=== PATIENT | male | born 1935 | race Caucasian/White ===

== ENCOUNTER 2017-01-03 03:40 | Observation (INO) | payer OTHER ==
--- NOTE | ~2017-01-03 | CN ---
Consultation Report [facility] [address] [place]. [address] NAME: BOB HINES : 33 STATUS : ADM Aurelia PAT#: [id number] AGE: 81 ADM/REG DATE : 01/03/17 MR#: [id number] REPORT SERV DATE: 01/03/17 DICTATED BY: MICHAEL CORONEL III DATE: 01/03/17 REPORT STATUS : Draft TRANSCRIBED BY: MODKristine DATE: 01/03/17 CONSULTATION DATE OF CONSULTATION: 01/03/2017 HISTORY OF PRESENT ILLNESS: Mr. Bob Hines is an 81-year-old white male, referred for evaluation of chest pain. The patient had been in his usual state of health until approximately 2010. At that time, the patient presented with dyspnea. The patient subsequently underwent cardiac catheterization followed by percutaneous coronary intervention with implantation of a coronary stent. The patient was told that there was a second stenosis that was not amenable to revascularization. The patient did well until approximately four months prior to this admission. At that time, the patient had the onset of dull left precordial chest pains without radiation. The patient's chest pains have lasted up to two hours in duration. The patient's chest pains have been accompanied by dyspnea. The patient denied any associated diaphoresis, nausea, or vomiting. The patient's chest pains occur at rest. Frequently, the patient's chest pains have awoken him from sleep. The patient denied relief of his chest pain with sublingual nitroglycerin. The patient denied trying antacids or a heating pad. The patient was subsequently seen in the [facility]. A 12-lead electrocardiogram demonstrated sinus rhythm with occasional ventricular premature complexes at 77 beats per minute. There was probable left ventricular hypertrophy. There were widespread nonspecific T-wave abnormalities. The patient's troponin I level was less than 0.02. A chest radiograph demonstrated cardiomegaly with increased interstitial markings. There was no change from a prior chest x-ray. The patient was subsequently admitted and referred for evaluation. The patient complained of dyspnea on exertion and occasional palpitations. The patient denied orthopnea, paroxysmal nocturnal dyspnea, trepopnea, pedal edema, and syncope. The patient has no history of rheumatic fever or cardiac murmur. The patient's documented coronary artery disease risk factors include family history, hyperlipoproteinemia, and hypertension. PAST MEDICAL HISTORY: 1. Hiatal hernia with gastroesophageal reflux. 2. Hypertension. 3. Hyperlipoproteinemia. 4. History of left lower extremity deep venous thrombosis. 5. Parkinson disease. 6. Arthritis. 7. History of multiple skin cancers. 8. Clostridium difficile colitis. 9. History of pneumonia followed by chronic hypoxemia. 10.Hypothyroidism. 11.Depression. 12.Chronic anxiety. Consultation Report [place] [address] [facility] [address] NAME: BOB HINES : 33 STATUS : ADM Aurelia PAT#: [id number] AGE: 81 ADM/REG DATE : 01/03/17 MR#: [id number] REPORT SERV DATE: 01/03/17 DICTATED BY: MICHAEL CORONEL III DATE: 01/03/17 REPORT STATUS : Draft TRANSCRIBED BY: JEAN MARIE DATE: 01/03/17 13.Chronic anemia. 14.Chronic obstructive pulmonary disease. OPERATIVE PROCEDURES: 1. Status post placement of a [place] filter. 2. Status post cholecystostomy tube. 3. Status post left total knee replacement. 4. Status post C5-C6 fusion. 5. Status post retinal surgery. ALLERGIES: 1. SULFA MEDICATIONS. 2. IODINE. MEDICATIONS: 1. Amantadine 100 mg p.o. b.i.d. 2. Aspirin 81 mg p.o. daily. 3. Beclomethasone two sprays b.i.d. 4. Carbidopa/levodopa 25/100 mg p.o. t.i.d. 5. Carbidopa/levodopa 12.5/50 mg p.o. b.i.d. 6. Cholecalciferol 10,000 units p.o. every week. 7. Colchicine 0.6 mg p.o. b.i.d. 8. Furosemide 20 mg p.o. daily. 9. Gabapentin 100 mg p.o. t.i.d. 10.Gemfibrozil 600 mg p.o. b.i.d. 11.Isosorbide mononitrate ER 30 mg p.o. daily. 12.Levothyroxine 100 mcg p.o. daily. 13.Loratadine 10 mg p.o. daily. 14.Pantoprazole 40 mg p.o. daily. 15.Potassium chloride 20 mEq p.o. daily. 16.Pravastatin 40 mg p.o. at bedtime. 17.Sertraline 50 mg p.o. at bedtime. 18.Tamsulosin 0.4 mg p.o. daily. 19.Warfarin as directed. 20.Vancomycin 125 mg p.o. q.6 hours until 01/22/2017. FAMILY HISTORY: Positive for myocardial infarction, hypertension, diabetes mellitus, stroke, cancer, kidney disease, and arthritis. Negative for seizures, liver disease, anemia, and mental illness. SOCIAL HISTORY: The patient denied any history of alcohol use. The patient discontinued cigarette smoking approximately 30 years prior to this admission. PHYSICAL EXAMINATION: GENERAL: Physical examination demonstrated an alert, elderly white male, in no acute Consultation Report [address] [address] NAME: BOB HINES : 33 STATUS : ADM Aurelia PAT#: [id number] AGE: 81 ADM/REG DATE : 01/03/17 MR#: [id number] REPORT SERV DATE: 01/03/17 DICTATED BY: MICHAEL CORONEL III DATE: 01/03/17 REPORT STATUS : Draft TRANSCRIBED BY: JEAN MARIE DATE: 01/03/17 distress. VITAL SIGNS: Demonstrated a temperature of 97.8 orally, respiratory rate of 20 breaths per minute, and a blood pressure of 125/58 mmHg with a heart rate of 67 beats per minute. SKIN: Warm and dry. There was distal left lower extremity hyperpigmentation and hair loss. A right upper quadrant cholecystostomy tube was intact. NECK: Supple and nontender. There was decreased range of motion. There was no appreciable lymphadenopathy or thyromegaly. There was no jugular venous distention. There were no appreciable carotid bruits. BACK: Examination of the back could not be performed. CHEST: Examination of the chest demonstrated that it was clear to auscultation anteriorly. CARDIAC: Cardiac examination demonstrated a nonpalpable apical impulse. There was a regular rhythm and rate without murmur, rub, gallop, or midsystolic click. There were no thrills or heaves. There was no a hepatojugular reflux. ABDOMEN: Examination of the abdomen demonstrated that it was obese, soft, and protuberant. There was no appreciable hepatosplenomegaly or masses. Bowel sounds were intact. There were no abdominal or femoral bruits. EXTREMITIES: Examination of the extremities demonstrated that they were symmetrical. There was decreased range of motion. There was no cyanosis or clubbing. There was 1+ pitting bilateral pedal edema. Pulses were 2+ and equal at the radial and dorsalis pedis arteries. The posterior tibial pulses were nonpalpable. ASSESSMENT: Mr. Bob Hines is an 81-year-old white male with three other risk factors for coronary atherosclerotic disease (i.e., family history, hyperlipoproteinemia, hypertension), history of two-vessel coronary artery disease, status post PCI with implantation of a stent (approximately 2010), and a normal intravenous vasodilator myocardial perfusion scan (approximately August 2016); who presents with chronic nonanginal chest pain and negative cardiac biomarkers. The patient's 12-lead electrocardiogram demonstrated no changes suggestive of myocardial ischemia or infarction. I would recommend continued medical therapy. Dr. Penaloza to return in a.m. /MODL Michael Coronel III, M.D., [facility], [facility] / [id number] CC: MD Titus Al M.D.
--- NOTE | ~2017-01-03 | DS ---
Discharge Summary [facility] [address] [place]. [address] NAME: BOB HINES : 33 STATUS : ADM Aurelia PAT#: [id number] AGE: 81 ADM/REG DATE : 01/03/17 MR#: [id number] REPORT SERV DATE: 01/05/17 DICTATED BY: JR. ERIC WILLIAM JOHN DATE: 01/05/17 REPORT STATUS : Draft TRANSCRIBED BY: MODKristine DATE: 01/05/17 ADMISSION DATE: 01/03/2017 DISCHARGE DATE: TENTATIVE DATE OF DISCHARGE: 01/05/2017. DISCHARGE DIAGNOSES: Include: 1. Chest pain. 2. History of coronary artery disease with stent. 3. Recent acute cholecystitis/cholangitis with cholecystostomy. 4. tube placed. 5. Recent Clostridium difficile colitis. 6. History of left lower extremity deep vein thrombosis. 7. Hypothyroidism. 8. Depression and anxiety. 9. Oxygen-dependent chronic obstructive pulmonary disease, on 3 L oxygen. 10.Essential hypertension. 11.Parkinson's disease. OPERATIONS, PROCEDURES, AND TREATMENTS: Include: 1. Myocardial perfusion scan which demonstrated no ischemia. Post infusion left ventricular ejection fraction was 52%, considered low risk. 2. Chest x-ray done 01/03/2017 showed persistent increased interstitial markings, reflect ongoing or recurrent failure with cardiomegaly. 3. Blood cultures x2 done 01/03/2017. One of three bottles grew gluten negative staph species considered to be a contaminant. DISCHARGE MEDICATIONS: Include: 1. Amantadine 100 mg orally twice a day. 2. Artificial Tears one drop 4 times a day. 3. Aspirin 325 daily. 4. Sinemet 25/100 one tablet at 0800, 1200, and 1700 hours. 5. Sinemet 25/100, one-half tablet at 0900 hours and 2100 hours. 6. Colchicine 0.6 mg twice a day. 7. Vitamin D3 10,000 units on Mondays. 8. Famotidine 20 mg orally twice a day. 9. Lasix 20 mg orally daily. 10.Neurontin 100 mg three times a day. 11.Gemfibrozil 600 mg orally twice a day. 12.Imdur 30 mg orally daily. 13.Synthroid 100 mcg orally daily. 14.Claritin 10 mg orally daily. 15.Pravachol 40 mg orally daily. 16.Zoloft 50 mg orally daily. 17.Vancocin liquid 125 mg every six hours through 01/22/2017. 18.Asmanex one puff inhaled daily. Discharge Summary [address] [address] NAME: BOB HINES : 33 STATUS : ADM Aurelia PAT#: [id number] AGE: 81 ADM/REG DATE : 01/03/17 MR#: [id number] REPORT SERV DATE: 01/05/17 DICTATED BY: JR. ERIC WILLIAM JOHN DATE: 01/05/17 REPORT STATUS : Draft TRANSCRIBED BY: JEAN MARIE DATE: 01/05/17 19.Flomax 0.4 mg orally daily. 20.Beclomethasone inhaler two puffs twice a day. 21.Tramadol 50 mg four times a day as needed. 22.Coumadin 3.5 mg orally before supper holding on 01/05/2017. HOSPITAL COURSE: The patient is an 81-year-old male, transferred from [facility] for chest pain. The patient was recently hospitalized at [facility] for acute cholecystitis with cholangitis, status post percutaneous drainage with placement of cholecystostomy tube. The patient also had Clostridium difficile and is on a continued vancomycin taper. The patient did not communicate well, however, was sent for chest pain. He is followed outpatient by Dr. Titus Penaloza. For complete details of the initial history, physical, and presenting data, please see Dr. Rand's dictated history and physical dated 01/03/2017. The patient was admitted to the Clinical Decision Unit where he was observed. He had serial troponins drawn, which were all less than 0.02. He had no EKG changes. He was seen in consultation by Dr. Penaloza and underwent a myocardial perfusion scan which showed no evidence of ischemia. Medical management was recommended. The patient's aspirin was also increased from 81 mg daily and 325 mg per day. Regarding the patient's recent C. difficile colitis, he continues his p.o. Vancocin through 01/22/2017. Regarding the patient's history of left lower extremity deep vein thrombosis, he was on Coumadin. He became supratherapeutic during the hospitalization. His INR at discharge is 3.1. Recommend holding his Coumadin today, checking an INR on Wednesday and Wednesday with adjustment of the dose as appropriate. The remainder of the patient's health problems remained stable. He has been seen by [facility] and needs a PT re-eval prior to acceptance. If the patient is accepted, he will be transferred back to [facility] today, 01/05/2017. DISCHARGE DIET: Regular. ACTIVITY: As tolerated. For discharge exam and laboratory, please see daily progress note. This discharge took 33 minutes for patient encounter, coordination care, and documentation. ELISABETH/JEAN MARIE Randall Eric Jr, MD / [id number] Discharge Summary [address] [address] NAME: BOB HINES : 33 STATUS : ADM Aurelia PAT#: [id number] AGE: 81 ADM/REG DATE : 01/03/17 MR#: [id number] REPORT SERV DATE: 01/05/17 DICTATED BY: JR. ERIC WILLIAM JOHN DATE: 01/05/17 REPORT STATUS : Draft TRANSCRIBED BY: JEAN MARIE DATE: 01/05/17 CC: Randall Eric Jr, MD
--- NOTE | ~2017-01-03 | HP ---
History And Physical [place] [address] [place]. [address] NAME: BOB HINES : 33 STATUS : ADM Aurelia PAT#: [id number] AGE: 81 ADM/REG DATE : 01/03/17 MR#: [id number] REPORT SERV DATE: 01/03/17 DICTATED BY: GRACIELA SOTO DATE: 01/03/17 REPORT STATUS : Draft TRANSCRIBED BY: MODL DATE: 01/03/17 DATE OF ADMISSION: 01/03/2017 CHIEF COMPLAINT: Left-sided chest pain. HISTORY OF PRESENT ILLNESS: This is an 81-year-old, male, who was transferred from [facility] after he was sent there for rehabilitation following admission at [facility] for acute cholecystitis and percutaneous drainage and placement of cholecystostomy tube. During that admission, he also had acute Clostridium difficile colitis and finished a course of IV treatment and is on vancomycin orally. Today, he started complaining of left-sided chest pain and was sent to the emergency room here to be evaluated. Mr. Hines has Parkinson's disease and does not communicate very well and is hard to get a reliable history from him. In the emergency room, initial workup including EKG did not show any acute changes. Chest x ray was unremarkable. His troponin today was 0.02 and Hospitalist Service asked to admit him for further evaluation and treatment. He has had prior complete workups for chest pain which proved to be noncardiac. He is a patient of Dr. Titus Penaloza. At the time of my evaluation, he did not have any chest pain or it was very mild according to him. He had no palpitations or orthopnea. He had no cough, hemoptysis, night sweats, or weight loss. He has not had any recent falls or loss of consciousness. No history of recent fevers, chills, nausea, vomiting, diarrhea, diaphoresis. No history of recent hematemesis, hematochezia, or hematuria. No other history of recent travel or exposures other than those mentioned above. PAST MEDICAL HISTORY: Significant for coronary artery disease with stent placement followed by Dr. Penaloza. He has a history of recent acute cholecystitis and had percutaneous drainage followed by placement of a cholecystostomy tube. He also had Clostridium difficile colitis for which he was treated with intravenous vancomycin, aztreonam, and Flagyl. After he finished that, he was on oral vancomycin. He also has history of DVT of the right lower extremity and is currently on warfarin therapy, history of atypical chest pain, negative workup, history of hypothyroidism, depression, anxiety, chronic anemia, COPD, essential hypertension, gastroesophageal reflux disease, chronic hypoxemia requiring continuous oxygen therapy, and Parkinson's disease. SOCIAL HISTORY: He does not smoke, drink, or use recreational drugs. FAMILY HISTORY: Noncontributory. MEDICATIONS: At home were reviewed by me in the chart today and reordered by me. REVIEW OF SYSTEMS: As in history of present illness. All other systems were reviewed in detail and are quite History And Physical [address] [address] NAME: BOB HINES : 33 STATUS : ADM Aurelia PAT#: [id number] AGE: 81 ADM/REG DATE : 01/03/17 MR#: [id number] REPORT SERV DATE: 01/03/17 DICTATED BY: GRACIELA SOTO DATE: 01/03/17 REPORT STATUS : Draft TRANSCRIBED BY: JEAN MARIE DATE: 01/03/17 unremarkable. PHYSICAL EXAMINATION: GENERAL: This is a pleasant, 81-year-old, not in any acute distress. HEENT: His head is atraumatic, normocephalic. He is alert, awake, oriented to time, place, and person. Pupils are equal, reacting to light and accommodating. External ocular muscles are intact. Membranes are moist and pink. Sclerae nonicteric. NECK: Supple with no jugular venous distention, lymphadenopathy, or thyromegaly. LUNGS: Clear to auscultation with no wheezes, rubs, or crackles. HEART: Heart sounds were regular with no murmurs, rubs, or gallops. ABDOMEN: Soft, nontender. Bowel sounds are present. EXTREMITIES: No cyanosis, clubbing, or edema. NEUROLOGIC: Grossly intact. No focal sensory or motor deficits. Higher functions appeared intact. I examined the site of the cholecystostomy tube. There is slight drainage around the tube which is bilious and the YOSHI drain is half full as well. There appears to be no bloody discharge at all. VITAL SIGNS: Today show temperature of 97.5, pulse 80, respirations 24 a minute, and blood pressure was 95/45, oxygen saturations were 93% on 2 L via nasal cannula. LABORATORY DATA: Reviewed on the [employer] system showed normal CMP with a blood glucose of 100. Albumin was 2.4 today. His troponin was 0.02 and lactate was 1.2 today. CBC showed a white blood cell count of 11,100, this is actually trending down. Hemoglobin was 9.2, hematocrit 30.1 which is more than what he was discharged home on. His MCV was 82.5 and platelet count was 324,000. His prothrombin time was 25.0 with an INR of 2.3 today. Urinalysis was not done today. Films of the chest x-ray were reviewed by me on the PACS today and interpreted by me. Per my interpretation, there is normal bony architecture with right cholecystostomy tube in place. Lung bradford show no infiltrates or lobar consolidations. There are no pleural effusions. IMPRESSION: 1. Acute chest pain. 2. Coronary artery disease with stent placement. 3. Recent acute cholecystitis, status post cholecystostomy drainage tube placement. 4. Recent Clostridium difficile colitis. 5. Deep venous thrombosis of the left leg, on warfarin therapy. 6. Hypothyroidism, on replacement therapy. 7. Depression and anxiety. 8. Chronic anemia. 9. Chronic obstructive pulmonary disease. 10.Essential hypertension. 11.Chronic hypoxemia requiring continuous oxygen therapy. 12.Parkinson's disease. PLAN: We will admit Mr. Hines to the Hospitalist Service with telemetry for a 24-hour observation period. We will follow serial troponin levels to rule out acute coronary syndrome. Go ahead and consult Dr. Penaloza to see him in the morning. We will continue History And Physical [address] [address] NAME: BOB HINES : 33 STATUS : ADM Aurelia PAT#: [id number] AGE: 81 ADM/REG DATE : 01/03/17 MR#: [id number] REPORT SERV DATE: 01/03/17 DICTATED BY: GRACIELA SOTO DATE: 01/03/17 REPORT STATUS : Draft TRANSCRIBED BY: JEAN MARIE DATE: 01/03/17 all his other medications including treatment for C. diff colitis. We will start him on full-dose aspirin, nitroglycerin paste, and continue all other medications that he is on. We will also check his TSH and continue replacement therapy. He is on warfarin with therapeutic levels. We will continue. I have discussed above plans with the patient. His questions were answered in detail. He is agreeable to the above recommendations. Further recommendations will follow after Dr. Penaloza has had a chance to see him today. Hospitalist Service will be following him during his stay here. /JEAN MARIE Graciela Soto M.D. / [id number] CC: Danica Gomez MD
--- NOTE | ~2017-01-03 | DS ---
Discharge Summary [facility] [address] [place]. [address] NAME: BOB HINES : 33 STATUS : ADM Aurelia PAT#: [id number] AGE: 81 ADM/REG DATE : 01/03/17 MR#: [id number] REPORT SERV DATE: 01/06/17 DICTATED BY: JR. MONTOYA WILLIAM JOHN DATE: 01/06/17 REPORT STATUS : Draft TRANSCRIBED BY: JEAN MARIE DATE: 01/06/17 ADMISSION DATE: 01/03/2017 DISCHARGE DATE: 01/06/2017 ADDENDUM: The patient is awaiting acceptance to [facility]. He had a physical therapy reevaluation yesterday and is pending approval. Interim history includes no significant events overnight. The patient had a PT/INR redrawn today, it was 2.4. He will resume his prior dose of Coumadin 3.5 mg orally daily. DIET: Regular. ACTIVITY: As tolerated. For discharge exam and laboratory, please see the daily progress note. ELISABETH/JEAN MARIE Randall Montoya Jr, MD / [id number] CC: Randall Montoya Jr, MD
[2017-01-03 03:38] LABS: BASOPHILS 0.5 %; BASOPHILS ABSOLUTE 0.06 10/3/uL (0.0-0.16); EOSINOPHILS 2.1 %; EOSINOPHILS ABSOLUTE 0.23 10/3/uL (0.0-0.53); ER CBC TAT 0 Hrs 07 Mins; HEMATOCRIT 30.1 % (40.0-51.0); HEMOGLOBIN 9.2 g/dL (13.6-17.8); IMMATURE GRANULOCYTES ABSOLUTE 0.78 10/3/uL (0.0-0.11); LYMPHOCYTES ABSOLUTE 2.56 10/3/uL (0.67-4.30); MANUAL DIFF NO %; MEAN CORPUS HGB CONC 30.6 g/dL (32.0-36.0); MEAN CORPUSCULAR HEMOGLOB 25.2 pg (26.0-34.0); MEAN CORPUSCULAR VOLUME 82.5 fL (80-100); MEAN PLATELET VOLUME 10.4 fL (9.2-13.0); MONOCYTES 24.7 %; MONOCYTES ABSOLUTE 2.75 10/3/uL (0.21-1.20); NEUTROPHILS 42.7 %; NEUTROPHILS ABSOLUTE 4.76 10/3/uL (2.02-8.40); PLATELET COUNT 324 10/3/uL (150-400); RED CELL COUNT 3.65 10/6/uL (4.7-6.1); WHITE BLOOD CELLS 11.1 10/3/uL (4.5-10.5)
[~2017-01-03 03:40] MED LIST: APRES25 PO; ASAB PO; BECLOMETHASONE 40 MCG PO; BION TEARS OPH; C1 PO; CLARIT10 PO; CLARITIN5 MG PO; CLEOCIN300 MG PO; COLCH6 PO; COLCRYS0.6 MG PO; COREG6 PO; COUMADIN4 MG PO; CUTIVATE TOP; CUTIVATE0.05 % TOP; D.O.S.100 MG PO; DSS PO; FLEX PO; FLOMAX4 PO; FRESHKOTE OPH; GERI-LANTA PO; GGDM5ML PO; GLUCPH PO; IMDUR30 PO; KDUR20 PO; KLONO5; KLONO5 PO; KLOR-CON 1010 MEQ PO; KLOR-CON M2020 MEQ PO; KURIC2 % TOP; L20 PO; L40 PO; LEVOTHYROXIN100 MCG PO; LIDODERM TOP; LOPID6 PO; MAXIMUM D3 PO; MIRALAX POWDER1 PKT PO; MOBIC7.5 PO; NEUR100 PO; NITROSTAT0.4 MG SL; NIZORALCRM TOP; PLAVIX PO; PRAVACHOL40 MG PO; PRILO PO; PROTONIX PO; Q-TUSSIN PO; QVAR40 MC1 INH; REQUIP4 MG PO; SIN25; SIN25 PO; SYMM100 PO; SYN1 PO; SYN88 PO; T PO; TEARS PURE OPH; ULTRAM50 PO; VITAMIN D31000 UNIT; VITAMIN D31000 UNIT PO; ZANTAC150 MG PO; ZOL50 PO; [UNRECOGNIZED DRUG - SUPPLY] OPH
[2017-01-03 03:52] LABS: INTERNATIONAL NORMAL RATI 2.3 UNITS (-); PARTIAL THROMBO TIME 50.7 SEC (22.5-37.2)
[2017-01-03 03:58] LABS: ANISOCYTOSIS 1+ (5-10/OIF) (0-5/OIF); BAND NEUTROPHILS 2 %; BASOPHILS 1 %; BASOPHILS ABSOLUTE (CALC) 0.11 10/3/uL (0.0-0.16); EOSINOPHILS 9 %; ER DIFF TAT 0 Hrs 27 Mins; IMMATURE GRANS ABSOLUTE (CALC) 0.44 10/3/uL (0.0-0.11); LYMPHOCYTES 17 %; LYMPHOCYTES ABSOLUTE (CALC) 1.89 10/3/uL (0.67-4.30); METAMYELOCYTES 4 %; MONOCYTES 17 %; MONOCYTES ABSOLUTE (CALC) 1.89 10/3/uL (0.21-1.20); NEUTROPHILS ABSOLUTE (CALC) 5.77 10/3/uL (2.02-8.40); OVALOCYTES 1+ (3-10/OIF) (0-2/OIF); PLATELET ESTIMATE ADQ (ADEQUATE); SEGMENTED NEUTROPHIL (0) 50 %; TOTAL NUCLEATED CELLS 100
[2017-01-03 04:00] LABS: ALBUMIN 2.4 G/DL (3.5-5.0); BUN (BLOOD UREA NITROGEN) 17 MG/DL (6-23); CALCIUM, SERUM 8.9 MG/DL (8.5-10.4); CHEST PAIN PROFILE TAT 0 Hrs 29 Mins; CHLORIDE, SERUM 104 MMOL/L (96-112); CO2 (CARBON DIOXIDE) 29 MMOL/L (24-34); CREATININE 0.86 MG/DL (0.70-1.30); GFR AFRICAN AMERICAN 93 ML/MIN (>=60); GFR NON AFRICAN AMERICAN 80 ML/MIN (>=60); GLUCOSE, SERUM 100 MG/DL (60-99); SGPT(ALT) 7 U/L (5-65); SODIUM, SERUM 142 MMOL/L (135-148); TOTAL BILIRUBIN 0.3 MG/DL (0-1.2); TOTAL PROTEIN 7.1 G/DL (6.0-8.5); TROPONIN I <0.02 NG/ML (<0.05)
[2017-01-03 04:01] LABS: ALKALINE PHOSPHATASE 95 U/L (45-117); DIRECT BILIRUBIN < 0.1 MG/DL (0.0-0.4); INDIRECT BILIRUBIN(NOT ORDER) 0.2 MG/DL (0.1-0.9); POTASSIUM, SERUM 4.2 MMOL/L (3.5-5.3); SGOT(AST) 22 U/L (5-40)
[2017-01-03 10:20] LABS: HEMATOCRIT 29.8 % (40.0-51.0); MEAN CORPUS HGB CONC 30.2 g/dL (32.0-36.0); MEAN CORPUSCULAR HEMOGLOB 25.6 pg (26.0-34.0); MEAN CORPUSCULAR VOLUME 84.9 fL (80-100); MEAN PLATELET VOLUME 10.3 fL (9.2-13.0); PLATELET COUNT 309 10/3/uL (150-400); RBC DISTRIBUTION WIDTH 18.6 % (12.0-16.0); RED CELL COUNT 3.51 10/6/uL (4.7-6.1); WHITE BLOOD CELLS 9.4 10/3/uL (4.5-10.5)
[2017-01-03 10:22] LABS: MANUAL DIFF YES %
[2017-01-03 10:43] LABS: BUN (BLOOD UREA NITROGEN) 17 MG/DL (6-23); CHLORIDE, SERUM 102 MMOL/L (96-112); CO2 (CARBON DIOXIDE) 29 MMOL/L (24-34); CREATININE 0.92 MG/DL (0.70-1.30); GFR AFRICAN AMERICAN 89 ML/MIN (>=60); GFR NON AFRICAN AMERICAN 77 ML/MIN (>=60); GLUCOSE, SERUM 91 MG/DL (60-99); PHOSPHORUS, SERUM 3.3 MG/DL (2.5-4.5); SODIUM, SERUM 140 MMOL/L (135-148); TROPONIN I <0.02 NG/ML (<0.05)
[2017-01-03] MEDS ORDERED: ZOL50 PO (10:56)
[2017-01-03] MEDS ORDERED: VANCOMYCIN 250 MG/5 ML PO (10:56)
[2017-01-03] MEDS ORDERED: SYMM100 PO (10:57)
[2017-01-03] MEDS ORDERED: REFRESH OPH (10:57)
[2017-01-03] MEDS ORDERED: SIN25 PO ×2 (10:57→10:58)
[2017-01-03] MEDS ORDERED: LOPID6 PO (10:58)
[2017-01-03] MEDS ORDERED: FLOMAX4 PO (10:58)
[2017-01-03] MEDS ORDERED: IMDUR30 PO (10:58)
[2017-01-03] MEDS ORDERED: PEP20 PO (10:58)
[2017-01-03] MEDS ORDERED: CLARIT10 PO (10:59)
[2017-01-03] MEDS ORDERED: ASMANEX200 INH (10:59)
[2017-01-03] MEDS ORDERED: NEUR100 PO (10:59)
[2017-01-03] MEDS ORDERED: ASAB PO (10:59)
[2017-01-03] MEDS ORDERED: QVAR40 MC1 INH (11:00)
[2017-01-03] MEDS ORDERED: MAXIMUM D3 PO (11:00)
[2017-01-03] MEDS ORDERED: COLCRYS0.6 MG PO (11:00)
[2017-01-03] MEDS ORDERED: L20 PO (11:01)
[2017-01-03] MEDS ORDERED: T PO (11:01)
[2017-01-03] MEDS ORDERED: ZOFRAN4 PO (11:02)
[2017-01-03 11:03] LABS: ANISOCYTOSIS 1+ (5-10/OIF) (0-5/OIF); BAND NEUTROPHILS 4 %; BASOPHILS 2 %; BASOPHILS ABSOLUTE (CALC) 0.19 10/3/uL (0.0-0.16); EOSINOPHILS 2 %; EOSINOPHILS ABSOLUTE (CALC) 0.19 10/3/uL (0.0-0.53); IMMATURE GRANS ABSOLUTE (CALC) 0.28 10/3/uL (0.0-0.11); LYMPHOCYTES 25 %; LYMPHOCYTES ABSOLUTE (CALC) 2.35 10/3/uL (0.67-4.30); METAMYELOCYTES 2 %; MONOCYTES 16 %; MYELOCYTES 1 %; NEUTROPHILS ABSOLUTE (CALC) 4.89 10/3/uL (2.02-8.40); PLATELET ESTIMATE ADQ (ADEQUATE); SEGMENTED NEUTROPHIL (0) 48 %; TOTAL NUCLEATED CELLS 100
[2017-01-03] MEDS ORDERED: PRAVACHOL40 MG PO (11:03)
[2017-01-03] MEDS ORDERED: ULTRAM50 PO (11:03)
[2017-01-03] MEDS ORDERED: C1 PO (11:03)
[2017-01-03] MEDS ORDERED: LEVOTHYROXIN100 MCG PO (11:03)
[2017-01-03 11:04] LABS: HYPOCHROMIA 1+ (3-10/OIF) (0-2/OIF); POLYCHROMASIA 1+ (2-5/OIF) (0-1/OIF); TEARDROP SHAPED RBCS OCC (0-2/OIF)
[2017-01-03 11:05] LABS: ELLIPTOCYTES 1+ (3-10/OIF) (0-2/OIF); HELMET CELLS OCC (0-2/OIF)
[2017-01-03 11:06] LABS: SCHISTOCYTES OCC (0-2/OIF)
[2017-01-03 11:07] LABS: TOXIC GRANULATION SLT
[2017-01-04 06:10] LABS: HEMATOCRIT 29.9 % (40.0-51.0); MEAN CORPUS HGB CONC 30.1 g/dL (32.0-36.0); MEAN CORPUSCULAR HEMOGLOB 25.6 pg (26.0-34.0); MEAN CORPUSCULAR VOLUME 85.2 fL (80-100); MEAN PLATELET VOLUME 10.5 fL (9.2-13.0); PLATELET COUNT 310 10/3/uL (150-400); RBC DISTRIBUTION WIDTH 18.9 % (12.0-16.0); RED CELL COUNT 3.51 10/6/uL (4.7-6.1); WHITE BLOOD CELLS 8.9 10/3/uL (4.5-10.5)
[2017-01-04 06:12] LABS: INTERNATIONAL NORMAL RATI 2.8 UNITS (-); PARTIAL THROMBO TIME 56.2 SEC (22.5-37.2); PROTIME (NOT ORD) 29.1 SEC (12.0-14.5)
[2017-01-04 06:15] LABS: MANUAL DIFF YES %
[2017-01-04 06:45] LABS: ANISOCYTOSIS 1+ (5-10/OIF) (0-5/OIF); BAND NEUTROPHILS 3 %; EOSINOPHILS 2 %; EOSINOPHILS ABSOLUTE (CALC) 0.18 10/3/uL (0.0-0.53); IMMATURE GRANS ABSOLUTE (CALC) 0.53 10/3/uL (0.0-0.11); LYMPHOCYTES 21 %; LYMPHOCYTES ABSOLUTE (CALC) 1.87 10/3/uL (0.67-4.30); METAMYELOCYTES 3 %; MONOCYTES 17 %; MONOCYTES ABSOLUTE (CALC) 1.51 10/3/uL (0.21-1.20); MYELOCYTES 3 %; NEUTROPHILS ABSOLUTE (CALC) 4.81 10/3/uL (2.02-8.40); PLATELET ESTIMATE ADQ (ADEQUATE); SEGMENTED NEUTROPHIL (0) 51 %; TOTAL NUCLEATED CELLS 100
[2017-01-05 04:59] LABS: HEMATOCRIT 29.5 % (40.0-51.0); HEMOGLOBIN 8.9 g/dL (13.6-17.8); MEAN CORPUS HGB CONC 30.2 g/dL (32.0-36.0); MEAN CORPUSCULAR HEMOGLOB 25.6 pg (26.0-34.0); MEAN CORPUSCULAR VOLUME 84.8 fL (80-100); MEAN PLATELET VOLUME 10.7 fL (9.2-13.0); PLATELET COUNT 318 10/3/uL (150-400); RBC DISTRIBUTION WIDTH 18.4 % (12.0-16.0); RED CELL COUNT 3.48 10/6/uL (4.7-6.1); WHITE BLOOD CELLS 8.7 10/3/uL (4.5-10.5)
[2017-01-05 05:00] LABS: MANUAL DIFF YES %
[2017-01-05 05:04] LABS: INTERNATIONAL NORMAL RATI 3.1 UNITS (-); PROTIME (NOT ORD) 31.6 SEC (12.0-14.5)
[2017-01-05 06:13] LABS: BAND NEUTROPHILS 2 %; BASOPHILS 1 %; BASOPHILS ABSOLUTE (CALC) 0.09 10/3/uL (0.0-0.16); EOSINOPHILS 2 %; EOSINOPHILS ABSOLUTE (CALC) 0.17 10/3/uL (0.0-0.53); IMMATURE GRANS ABSOLUTE (CALC) 0.52 10/3/uL (0.0-0.11); LYMPHOCYTES 17 %; LYMPHOCYTES ABSOLUTE (CALC) 1.48 10/3/uL (0.67-4.30); METAMYELOCYTES 5 %; MONOCYTES 11 %; MONOCYTES ABSOLUTE (CALC) 0.96 10/3/uL (0.21-1.20); MYELOCYTES 1 %; NEUTROPHILS ABSOLUTE (CALC) 5.48 10/3/uL (2.02-8.40); SEGMENTED NEUTROPHIL (0) 61 %; TOTAL NUCLEATED CELLS 100
[2017-01-05 06:16] LABS: PLATELET ESTIMATE ADQ (ADEQUATE); POIKILOCYTOSIS 1+ (5-10/OIF) (0-5/OIF)
[2017-01-05 06:17] LABS: STOMATOCYTES 1+ (3-10/OIF) (0-2/OIF)
[2017-01-05 06:18] LABS: ANISOCYTOSIS 1+ (5-10/OIF) (0-5/OIF)
[2017-01-06 05:11] LABS: HEMATOCRIT 30.3 % (40.0-51.0); HEMOGLOBIN 9.1 g/dL (13.6-17.8); MEAN CORPUSCULAR HEMOGLOB 25.4 pg (26.0-34.0); MEAN CORPUSCULAR VOLUME 84.6 fL (80-100); MEAN PLATELET VOLUME 10.4 fL (9.2-13.0); PLATELET COUNT 338 10/3/uL (150-400); RBC DISTRIBUTION WIDTH 18.4 % (12.0-16.0); RED CELL COUNT 3.58 10/6/uL (4.7-6.1); WHITE BLOOD CELLS 8.8 10/3/uL (4.5-10.5)
[2017-01-06 05:14] LABS: MANUAL DIFF YES %
[2017-01-06 05:22] LABS: INTERNATIONAL NORMAL RATI 2.4 UNITS (-)
[2017-01-06 05:23] LABS: PROTIME (NOT ORD) 25.6 SEC (12.0-14.5)
[2017-01-06 05:57] LABS: ANISOCYTOSIS 1+ (5-10/OIF) (0-5/OIF); EOSINOPHILS 4 %; EOSINOPHILS ABSOLUTE (CALC) 0.35 10/3/uL (0.0-0.53); HYPOCHROMIA 1+ (3-10/OIF) (0-2/OIF); IMMATURE GRANS ABSOLUTE (CALC) 0.26 10/3/uL (0.0-0.11); LYMPHOCYTES 25 %; METAMYELOCYTES 3 %; MONOCYTES 11 %; MONOCYTES ABSOLUTE (CALC) 0.97 10/3/uL (0.21-1.20); NEUTROPHILS ABSOLUTE (CALC) 5.02 10/3/uL (2.02-8.40); PLATELET ESTIMATE ADQ (ADEQUATE); SEGMENTED NEUTROPHIL (0) 57 %; TOTAL NUCLEATED CELLS 100
[2017-01-06] MEDS ORDERED: ASAEC PO (15:02)
== END 2017-01-06 15:44 ==
LOC: ER 03:40 → CDU1 06:05
PROVIDERS: Emergency Medicine; Internal Medicine; Internal Medicine Pulmonary Disease
DX: I25.10 Atherosclerotic heart disease of native coronary artery without angina pectoris (principal); E03.9 Hypothyroidism, unspecified; F32.9 Major depressive disorder, single episode, unspecified; F41.9 Anxiety disorder, unspecified; D64.9 Anemia, unspecified; J44.9 Chronic obstructive pulmonary disease, unspecified; I10 Essential (primary) hypertension; G20 Parkinson's disease; R09.02 Hypoxemia; K21.9 Gastro-esophageal reflux disease without esophagitis; E78.5 Hyperlipidemia, unspecified; M19.90 Unspecified osteoarthritis, unspecified site; Z85.828 Personal history of other malignant neoplasm of skin; Z95.5 Presence of coronary angioplasty implant and graft; Z87.01 Personal history of pneumonia (recurrent); Z82.49 Family history of ischemic heart disease and other diseases of the circulatory system; Z90.49 Acquired absence of other specified parts of digestive tract; Z99.89 Dependence on other enabling machines and devices; Z88.2 Allergy status to sulfonamides; Z88.5 Allergy status to narcotic agent
CPT/HCPCS: 71010; 78452; 80048; 80076; 82962; 83605; 83690; 83735; 84100; 84443; 84484; 85025; 85610; 85730; 87040; 87150; 93005; 93017; 94640; 96374; 96375; 97116-GP; 97162-GP; 99285; A9270-GY; A9502; G0378; J0153; J0280; J2405

== ENCOUNTER 2017-01-29 02:49 | Inpatient (IN) | payer OTHER ==
--- NOTE | ~2017-01-29 | CN ---
Consultation Report [facility] [address] [place]. [address] NAME: BOB HINES : 31 STATUS : ADM IN [facility]#: [id number] AGE: 81 ADM/REG DATE : 01/29/17 MR#: [id number] REPORT SERV DATE: 01/29/17 DICTATED BY: MEAGAN PARTIDA DATE: 01/29/17 REPORT STATUS : Draft TRANSCRIBED BY: MODL DATE: 01/29/17 DATE OF CONSULTATION: 01/29/2017 REASON FOR CONSULTATION: Evaluation and management of anemia. HISTORY OF PRESENT ILLNESS: Mr. Hines is an 81-year-old male patient, who has been seen by Dr. Saleh as well as Dr. Schulz in the past, who presented to [facility] from the long term facility secondary to fevers, hypertension, and altered mental status. The patient's history of present illness has been gathered from the patient's daughter, son- in-law, as well as minimal information given from the patient. It appears that the patient was recently at [facility] secondary to chest pain. He was seen by Dr. Coronel. He was subsequently discharged on 01/06/[address] [facility] for physical therapy. He also has a history of recent cholecystitis status post cholecystostomy tube placement, subsequently it has been removed, as well as diagnosis of C diff on 12/23/2016. Per the daughter, he was treated for roughly two-three weeks of oral vancomycin. She states that she went to see him yesterday and he was hard to awaken. She felt at first it was secondary to rehab and that he could be tired from that, however, he was noted to have fever and he was sent in from the long term in the emergency room. He had a blood pressure noted to be 98/39 with 91 pulse rate. His white count was found to be 41.7. His hemoglobin on ABGs was 9.2, however, on blood lab values, it was 5.4. He is status post 2 units of blood with an improvement to 10.9. He was Hemoccult negative. He has had diarrhea, but no signs of obvious blood per the daughter's report. The patient himself does not know he to me denied abdominal pain. On exam, he does have some left lower quadrant tenderness to palpation. Presently, his white blood cell count is 27.3. His stools have tested positive for C diff and he has been appropriately placed on vancomycin. I have discussed with the patient as well as the patient's daughter who is present at the bedside at this point in time that unless he develops large volume GI bleeding, no plan to pursue endoscopy. He does have a history of endoscopy in 07/2015 for reported melena. He had a colonoscopy, which showed polyp in the descending colon, diverticulosis of the sigmoid colon, and internal hemorrhoids. On 08/12/2015, he had upper endoscopy for complaints of melena with erythema in the antrum. Normal cardia, gastric fundus, and gastric body, hiatal hernia, normal esophagus. PAST MEDICAL HISTORY: Positive for recent C diff, treated with vancomycin; Parkinson disease; COPD; chronic nasal cannula oxygen; GERD; gastritis; left upper extremity DVT with IVC filter; coronary artery disease with PCI; BPH; hypertension; hyperlipidemia; acute cholecystitis with cholecystostomy tube; GI bleed; hypothyroidism; colon polyps; diverticulosis. PAST SURGICAL HISTORY: Left total knee, eye surgery, cervical spine fusion, IVC filter, PCI, and cholecystostomy tube. SOCIAL HISTORY: [facility] No alcohol, tobacco, or illicit drug use noted. Consultation Report [address] [address] NAME: BOB HINES : 33 STATUS : ADM IN [facility]#: [id number] AGE: 81 ADM/REG DATE : 01/29/17 MR#: [id number] REPORT SERV DATE: 01/29/17 DICTATED BY: MEAGAN PARTIDA DATE: 01/29/17 REPORT STATUS : Draft TRANSCRIBED BY: JEAN MARIE DATE: 01/29/17 FAMILY HISTORY: Noncontributory from a GI standpoint. ALLERGIES: LISTED TO SULFA AND IODINE. HOME MEDICATIONS: Tylenol, Symmetrel, Refresh eyedrops, Ecotrin, QVAR, Sinemet, Maximum D3, colchicine, Pepcid, Lasix, Neurontin, Lopid, Imdur, levothyroxine, Claritin, Asmanex, Zofran, Pravachol, Zoloft, Flomax, Ultram, vancomycin, and Coumadin. REVIEW OF SYSTEMS: A 10-point review of systems obtained. Pertinent positives addressed in the history of present illness. PHYSICAL EXAMINATION: VITAL SIGNS: Temperature 98.4, pulse is 80, respirations are 28, and blood pressure 124/58. NEURO: He is an alert, elderly male, resting in bed, acutely ill in appearance. He has notable tremors in the upper extremity secondary to Parkinson disease. GENERAL: He is cooperative. He is in no apparent or acute distress and it is difficult to understand with his speech, it is somewhat slurred. HEAD, EARS, EYES, NOSE, AND THROAT: Anicteric. Pupils are equal, round, and reactive to light and accommodation. Normocephalic and atraumatic. NECK: No JVD. No palpable nodes. LUNGS: Decreased throughout. Normal respiratory effort exhibited. Coarse in the bilateral lower lobes. CARDIOVASCULAR: Regular rate and rhythm. ABDOMEN: Soft and nondistended, but round, obese, tender to palpation to the left lower quadrant. No rebound or guarding. Hypoactive in all four quadrants. EXTREMITIES: No edema. Normal distal pulses. SKIN: Somewhat flushed in appearance, but intact. PERTINENT LABORATORY DATA: Sodium 142, potassium 4.1, BUN is 26, creatinine is 1.16. White count 27.3, hemoglobin 10.9, hematocrit 34.5, platelet count 217, INR 1.9. C diff is positive. Giardia and Cryptosporidium are negative. ASSESSMENT: 1. Severe sepsis. 2. Acute on chronic anemia, status post two units, hemoglobin increased from 5 to 10. 3. Clostridium difficile positive/recurrence. 4. Recent acute cholecystitis with cholecystostomy tube placement. 5. Urinary tract infection. 6. Chronic hypoxic respiratory failure. PLAN: 1. Vancomycin taper. 2. No plans for endoscopy unless obvious GI bleed observed. He is heme negative. No nausea or vomiting. Would use Pepcid and not Protonix with his C diff positivity will Consultation Report [place] [id number] [place] [address] NAME: BOB HINES : 31 STATUS : ADM IN [facility]#: [id number] AGE: 81 ADM/REG DATE : 01/29/17 MR#: [id number] REPORT SERV DATE: 01/29/17 DICTATED BY: MEAGAN PARTIDA DATE: 01/29/17 REPORT STATUS : Draft TRANSCRIBED BY: JEAN MARIE DATE: 01/29/17 be available. CHUCHO/JEAN MARIE DANTE Fabian / [id number] CC: Elvis Kauffman MD
--- NOTE | ~2017-01-29 | CN ---
Consultation Report [facility] [address] [place]. 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 HISTORY: Mr. Hines is a very unfortunate 81-year-old who suffers from severe Parkinson disease. In discussion with family back at [facility] presentation on 12/21/2016, he has had a steady decline in mental and physical health and function over the last six to nine months. The patient was brought to the [facility] Emergency Department on Wednesday12/21/2016 with the stated complaint of abdominal pain. Unfortunately, due to the Mr. Hines' significant Parkinson disease, it is virtually impossible to get any useful history. At the time of that presentation, he had an elevated white count; diffuse abdominal tenderness, which was mild with normoactive bowel sounds. He had loose bowel movements that were C diff positive and he has been documented as being C diff positive repeatedly. He had normal liver functions, and had a CAT scan done that is reported to show a distended gallbladder with possible thickening and inflammatory change that could be consistent with acute cholecystitis. I evaluated the patient at presentation and it was a very uncertain clinical situation. He was admitted to hospital, broad-spectrum antibiotics were begun, and an ultrasound was performed that was reported to have shown some "sludge," but no changes of cholecystitis with a negative radiographic Sanchez sign. Again, with the continued course of antibiotic therapy. He did not seem to get better. Radiological opinion was that if ultrasound was not helpful, we certainly could consider a HIDA scan for definitive determination of cystic duct obstruction, which I felt was warranted. In light of the patient's history of C. diff, which was ongoing, I did not feel that an extended course of antibiotic therapy was in his best interests. We spoke with family and the patient was not felt to be a good operative candidate and was preferred to avoid surgery. At that time, the patient had been made a DNR status due to his progressive Parkinson's. We obtained a HIDA scan, and it showed a cystic duct obstruction, and again in light of the significant Parkinson's, C difficile, ongoing abdominal pain, and tenderness without improvement with a two- to three-day course of antibiotic therapy, I recommended cholecystostomy tube as it was, in my opinion, the best way to try to handle the clinical situation. Again, I was not entirely certain that the patient had cholecystitis, but if he did, it would certainly definitively and effectively treat and dramatically shorten the course of antibiotic therapy that was needed. The case was reviewed with Infectious Disease, who was on the case at that time, and they were quite agreeable. The patient underwent cholecystostomy tube uneventfully, had immediate return of bile, which would rule against cystic duct obstruction that had been suggested by nuclear study. With the drain in place, the patient seemed to have clinical resolution of his abdominal process. Again, this is after additional days of antibiotic therapy both for broad-spectrum treatment of possible cholecystitis and focussed treatment for C difficile colitis. The patient was discharged on only treatment of the C difficile colitis with green bile draining out the Consultation Report [facility] [address] [facility] [address] [place]. [address] NAME: BOB HINES : 31 STATUS : ADM IN [facility]#: [id number] AGE: 81 ADM/REG DATE : 01/29/17 MR#: [id number] REPORT SERV DATE: 01/30/17 DICTATED BY: ZAK REYNOLDS DATE: 01/30/17 REPORT STATUS : Draft TRANSCRIBED BY: MODKristine DATE: 01/30/17 cholecystostomy, made it home to his care facility for 24-48 hours, and was then readmitted to the [facility] with again a murky history, but reported pain. At this time, admitted for cardiac eval. Again, please note, the patient has a history of significant coronary artery disease under the care Dr. Penaloza as well as COPD. It was apparently not felt to be appropriate to pursue cardiac intervention. The patient was returned to his care facility after a short stay. He followed up in my office one week ago entirely symptom free with a completely benign abdomen. Again, we have had about three weeks of continuous green bile drainage out the cholecystostomy tube, and I removed it in the office uneventfully. The patient, now a week later, has re-presented to the [facility], and again, I cannot get history from the patient due to his significant Parkinson disease. However, at this admission, he was found to have elevated white count with significant drop in hemoglobin and hematocrit, low blood pressure, and was presumptively diagnosed, admitted, and being treated for "sepsis." I was consulted to see on rounds at 5 o'clock on Wednesday, 01/29, attempted to contact the consulting physician to clarify patient course, but they were unavailable. At this time, in examining the patient, he is in his bed, mentally alert with a significant tremor, has no significant or specific complaint, he has bilateral breath sounds, regular rate and rhythm, a somewhat distended abdomen with bowel sounds, there is diffuse tenderness in the abdomen, and interestingly, at this presentation, the least amount of tenderness is in the right upper quadrant. He has again been found to be C difficile positive. The admitting CAT scan is essentially negative without evidence of infection, inflammatory process, free fluid, free air, pneumatosis, or other significant pathological process. Again, admitting white count 42, steady decline into the 20s with fluid and broad- spectrum antibiotic therapy. Liver functions have been normal throughout. IMPRESSION: I feel bad that Mr. Hines is on a declining health course and I find it unlikely that he will survive more than a year based on the last several months of repeated hospitalization. I felt that there was a clinical possibility of cholecystitis at the November admission, and again in the setting of the C difficile colitis, I felt that the cholecystostomy and a short course of antibiotic therapy for possible cholecystitis was the preferred management. Once the drain was in place with immediate bile return, really ruling against cholecystitis. We did a cholecystogram/cholangiogram prior to discharge that was entirely normal with no stones, debris, filling defect, obstruction, which again rules against a biliary tract etiology. My impression is that this poor gentleman is having declining health, significant Parkinson disease, COPD, coronary atherosclerotic heart disease, C difficile colitis. I do not think he is a candidate for surgical intervention as was the case with the detailed discussion with family a month and a half ago. I do not think that cholecystitis is his problem based on the course and findings over the last month. I am going to defer to hospitalist, GI, and Infectious Disease in the current clinical setting that does appear to be most consistent with C difficile colitis. I am truly not entirely clear why he has had a significant drop in hemoglobin and hematocrit. This was Consultation Report [address] [place] [facility] [place] [address] NAME: BOB HINES : 31 STATUS : ADM IN PAT#: [id number] AGE: 81 ADM/REG DATE : 01/29/17 MR#: [id number] REPORT SERV DATE: 01/30/17 DICTATED BY: ZAK REYNOLDS DATE: 01/30/17 REPORT STATUS : Draft TRANSCRIBED BY: MODL DATE: 01/30/17 stable throughout the course to this point. Stool is Hemoccult positive, but again in the setting of C diff, I do not know the significance of this. Hemoglobin has increased to an acceptable level with two-unit blood transfusion and it appears to be stable. If all consultants feel quite definitively that the current problem is cholecystitis and not his overall general failing health and if all consultants feel that surgical intervention and cholecystectomy is what is needed to get Mr. Hines back on track, I would be willing to entertain this, but would need to have a very detailed discussion with family. It is my own opinion that Mr. Hines is going to have a steadily declining course and I do not think surgery is going to change that. I will be available for any additional opinion, question, concern, and will be pleased to help, but at this point in time, I do not see anything I can help with as a surgeon in his case. ROOPA/JEAN MARIE Zak Reynolds M.D. / [id number] CC: Ap Flaherty M.D.
--- NOTE | ~2017-01-29 | HP ---
History And Physical [address] [place]. [address] NAME: BOB HINES : 33 STATUS : ADM IN [facility]#: [id number] AGE: 81 ADM/REG DATE : 01/29/17 MR#: [id number] REPORT SERV DATE: 01/29/17 DICTATED BY: MIKHAIL PINA DATE: 01/29/17 REPORT STATUS : Draft TRANSCRIBED BY: MODL DATE: 01/29/17 DATE OF ADMISSION: 01/29/2017 POINT OF ENTRY: [facility] Emergency Department. PRIMARY ASSISTANT WOMEN'S TENNIS COACH: Dr. Penaloza. PRIMARY WOODWINDS TEACHER: Dr. Saleh. CHIEF COMPLAINT: Fevers, low blood pressure, and altered mental status. HISTORY OF PRESENT ILLNESS: Mr. Hines is an 81-year-old gentleman currently residing at [facility] who has a history of Parkinson disease, COPD on chronic 3 L by nasal cannula, recent admission for C. diff colitis, as well as acute cholecystitis, status post cholecystostomy tube placement and other medical comorbidities, who is referred to our emergency department for reports of altered mental status, low blood pressure, as well as fevers. The patient reports he is a very poor historian secondary to his encephalopathy. He is able to tell me his name, where he is at, as well as his birthday and states that he has had some various degrees of epigastric abdominal pain but no other complaints and is unable to tell me specifically why he was transferred to the emergency department. Initial evaluation in the emergency department notable for a blood pressure of 98/39, pulse of 91, was afebrile. Labs notable for a white count of 41,700 with a hemoglobin of 5.4, hematocrit 17.5, lactic acid was elevated at 3.4, as well as procalcitonin at 6.67. Urinalysis did show some mild pyuria. Chest x-ray concerning for possible right greater than left lower lobe infiltrate versus atelectasis. CT of the abdomen and pelvis shows some mild fecal stasis and nonobstructive nephrolithiasis but otherwise was unremarkable. The patient was given 2 L of IV fluids as well as cefepime and started on a blood transfusion with some modest improvement on patient's blood pressure. The patient was subsequently admitted to the Hospitalist Service for further evaluation and management. REVIEW OF SYSTEMS: Comprehensive review of systems otherwise negative unless listed in history of present illness. PREVIOUS MEDICAL HISTORY: 1. Parkinson disease. 2. COPD on 3 L by nasal cannula. 3. Gastroesophageal reflux disease. 4. History of left lower extremity DVT, status post IVC filter placement. 5. Coronary artery disease with prior PCI. 6. BPH. 7. Hypertension. 8. Hyperlipidemia. History And Physical [address] [address] NAME: BOB HINES : 33 STATUS : ADM IN [facility]#: [id number] AGE: 81 ADM/REG DATE : 01/29/17 MR#: [id number] REPORT SERV DATE: 01/29/17 DICTATED BY: MIKHAIL PINA DATE: 01/29/17 REPORT STATUS : Draft TRANSCRIBED BY: JEAN MARIE DATE: 01/29/17 9. Hypothyroidism. 10.History of GI bleed in the past. 11.Recent history of C. diff colitis. 12.Recent history of acute cholecystitis, status post cholecystostomy tube drainage since removal. 13.History of colonic polyps. 14.History of diverticulosis. SURGICAL HISTORY: 1. Left total knee. 2. Eye surgery. 3. Cervical spine fusion. 4. IVC filter placement. 5. Cholecystostomy tube placement. 6. PCI. ALLERGIES: IODINE AND SULFA. HOME MEDICATIONS: Pending at the time of dictation. SOCIAL HISTORY: Denies any tobacco, alcohol, or illicits. Now currently resides at [facility]. FAMILY MEDICAL HISTORY: Significant for coronary artery disease and cancer. LABS AND IMAGIN. White count is 41.7, hemoglobin is 5.4, hematocrit is 17.5, and platelet count is 295. INR 1.9. 2. Sodium is 144, potassium 3.6, chloride 105, carbon dioxide 28, BUN 23, creatinine 1.34, glucose is 87, calcium is 8.8, protein 6.9, albumin is 2.7, bilirubin is 0.4, ALT is 11, AST 22, and alkaline phosphatase is 129. 3. Lactic acid is 3.4. 4. Flu swab is negative. 5. Urinalysis: Spec gravity is 1.020, hazy trace ketones, small leukocyte esterase, 23 red blood cells with 15 white blood cells per high-powered field. 6. Procalcitonin 6.67. 7. Chest x-ray per my review shows possible right lower lobe atelectasis versus infiltrate, more so than on the left. 8. CT scan of abdomen and pelvis shows mild fecal stasis as well as nonobstructive nephrolithiasis. There is no note of infiltrate noted in the lung bases on CT. 9. CT scan of the brain shows chronic ischemic changes and generalized atrophy but no acute intracranial abnormality. 10.EKG per my review shows normal sinus rhythm with first-degree AV block. No evidence of any acute ischemic infarction. 11.ABG; pH is 7.45, pCO2 is 33, PO2 of 83, bicarb is 23, saturating 96% on 4 L by nasal cannula. History And Physical [address] [address] NAME: BOB HINES : 33 STATUS : ADM IN [facility]#: [id number] AGE: 81 ADM/REG DATE : 01/29/17 MR#: [id number] REPORT SERV DATE: 01/29/17 DICTATED BY: MIKHAIL PINA DATE: 01/29/17 REPORT STATUS : Draft TRANSCRIBED BY: JEAN MARIE DATE: 01/29/17 PHYSICAL EXAMINATION: VITAL SIGNS: Temperature is 98.9 degrees Fahrenheit, pulse is 91, respirations 16, saturating 99% on 4 L by nasal cannula. Blood pressure 98/39. On recheck, it is now 102/42 with a pulse of 81. MAP of greater than 65. GENERAL: The patient is awake, alert, in no acute distress. Resting comfortably in bed. He is a chronically ill-appearing, elderly male who appears ill but nontoxic. HEENT: Atraumatic and normocephalic. Very dry mucous membranes. Pupils are equal, round, reactive to light and accommodation. Extraocular eye movements intact. No scleral icterus. NECK: No jugular venous distention. No carotid bruits. CARDIAC: Regular rate and rhythm. No murmurs or gallops. Normal S1, S2. LUNGS: Decreased breath sounds in the bases and some prolonged respiratory phase. Otherwise, no wheezes or rhonchi appreciated. ABDOMEN: Soft, mildly tender to palpation over the epigastrium but no rebound, guarding, or rigidity. EXTREMITIES: Warm, perfused. No cyanosis, clubbing, or edema. SKIN: Warm and dry. No evidence of any cellulitic changes. He does have some stage I sacral decubitus changes but no skin breakdown or evidence of any ulcers. PSYCH: Somewhat blunted. NEURO: He is alert and oriented x3. Speech is hypophonic and somewhat difficult to understand but without dysarthria. Cranial nerves 2 through 12 are grossly intact. Speech is normal. Gait not assessed. ASSESSMENT: Mr. Hines is an 81-year-old gentleman who was brought to the emergency room today for fevers, hypotension, altered mental status, and found to have evidence of severe sepsis of presumed pulmonary origin as well as acute on chronic anemia of unclear etiology. PROBLEM LIST: 1. Severe sepsis. 2. Acute on chronic anemia. 3. Acute kidney injury. 4. Right lower lobe pneumonia. 5. Urinary tract infection. 6. Toxic metabolic encephalopathy. 7. Chronic hypoxic respiratory failure. 8. History of recent acute cholecystitis, status post cholecystostomy tube. 9. History of recent Clostridium difficile colitis. PLAN: 1. Severe sepsis, likely of pulmonary origin or possible UTI versus possible C. diff. We will treat with aggressive IV fluid hydration. He has already received 2 L of IV fluids here. IV fluids have been on hold as he is now receiving blood. We will put him on broad-spectrum antibiotics of IV vancomycin and Zosyn. Follow up blood cultures, urine cultures, as well as C. diff. We will repeat a lactic acid level in a few hours. 2. Pneumonia. Check sputum culture as well as urinary antigens. Provide broad-spectrum IV antibiotics. 3. Acute kidney injury. The patient's creatinine of 1.34 is above recent labs of History And Physical [address] [address] NAME: BOB HINES : 33 STATUS : ADM IN [facility]#: [id number] AGE: 81 ADM/REG DATE : 01/29/17 MR#: [id number] REPORT SERV DATE: 01/29/17 DICTATED BY: MIKHAIL PINA DATE: 01/29/17 REPORT STATUS : Draft TRANSCRIBED BY: MODL DATE: 01/29/17 creatinine of 0.66 about 10 days ago. Provide aggressive IV fluid hydration. Holding nephrotoxic medications. Likely secondary to severe sepsis. 4. Acute on chronic anemia. The patient's previous values for his hemoglobin and hematocrit were more in the 8 to 9 range with hematocrit of 26 to 28 as recently as 7 to 10 days ago. Occult stool here in the emergency department was negative. We will repeat an occult stool as well as iron studies. He is to receive 2 units of packed red blood cell transfusion. We will consult Dr. Saleh of GI for assistance as the patient has a history of prior GI bleed in the past. 5. Chronic hypoxic respiratory failure. The patient is currently saturating well on 4 L by nasal cannula which is very close to his reported baseline requirements. We will continue to monitor. 6. Urinary tract infection. The patient does have some mild pyuria which may be contributing to his severe sepsis. Provide aggressive IV antibiotics as well as follow up urine culture. 7. Hypotension, likely multifactorial from the patient's dehydration, severe sepsis, as well as worsening of his chronic anemia. This is now improving with IV fluids and blood product resuscitation. Should the patient remain hypotensive, we will also consider stress dose steroids. We will place an order for a PICC line placement in the morning in the event that he does need vasopressors. 8. DVT prophylaxis. PANCHO's and SCD's. CODE STATUS: The patient wishes to be a full code. This was confirmed with the patient. JCB/MODL Mikhail Pina MD / [id number] CC: Ap Guevara M.D. Alexander Stratienko, M.D.
--- NOTE | ~2017-01-29 | CN ---
Consultation Report [facility] [address] [place]. [address] NAME: BOB HINES : 33 STATUS : ADM IN PAT#: [id number] AGE: 81 ADM/REG DATE : 01/29/17 MR#: [id number] REPORT SERV DATE: 02/01/17 DICTATED BY: SAJAN RILEY DATE: 02/01/17 REPORT STATUS : Draft TRANSCRIBED BY: MODL DATE: 02/01/17 CONSULTATION DATE OF CONSULTATION: REASON FOR CONSULTATION: Acute kidney injury. HISTORY OF PRESENT ILLNESS: This is a pleasant 81-year-old male patient admitted to the hospitalist service. We were asked to evaluate the patient for an acute kidney injury. Baseline creatinine appears to be sub 1.0 up until 12/2016. Admitted with a creatinine of 1.16 with a steady rise to 1.64 today on 02/01/2017 from 01/29/2017. The patient has had worsening difficulty with Parkinson's and associated symptomatology. He has been readmitted on multiple occasions. Of late, according to discussions with Dr. Reynolds, this morning regarding a tender-firm abdomen with leukocytosis and question of cholecystitis. He is positive for C difficile, and has resulted a blood culture this morning positive for Staph species, aggregate negative with one culture of tubing positive. He also indicates to have a lactate at 2.8 and has been treated with p.o. vancomycin as well as oral vancomycin. Last available vancomycin level on 01/31/2017 is at 20.4. According to conversation with staff as well as listed in I's and O's, the patient's urinary output has decreased and is minimal showing him positive this morning at 5.175 L with 400 mL of urinary output listed. There was a request of GI surgical evaluation regarding possible cholecystitis as well as the question of toxic megacolon and according to conversations this morning with Dr. Reynolds, although these workups continue to proceed, the scenario would indicate that those are unlikely. The patient continues on p.o. vancomycin as well as IV vancomycin as well as IV Flagyl. The patient's family is at bedside this morning. The patient is awake and alert, but at baseline is known to be diminished due to his Parkinson's. He has an NG tube that was inserted at the request of the hospitalist service yesterday and does not appear to be in acute distress and is resting comfortably. PAST MEDICAL HISTORY: Positive for recurrent fevers; Parkinson disease; COPD with known chronic oxygen use at 3 L; gastroesophageal reflux disease; history of left lower extremity DVT, status post IVC filter placement with chronic anticoagulant use; coronary artery disease with prior PCI; BPH; hypertension; hyperlipidemia; hypothyroidism; history of GI bleed in the past; history of C. diff colitis in the past as well as active C. diff colitis currently; recent history of acute cholecystitis, status post cholecystostomy tube drainage with removal by GI Services as per my conversation this morning with Dr. Reynolds; history of colon polyps; history of diverticulosis; previous surgical history of left total knee; eye surgery; cervical spine fusion; and IVC filter placement. ACTIVE MEDICATIONS AND ALLERGIES: Are as follows: He lists allergies to sulfa antibiotics and iodine. Active medications include, amantadine p.o. b.i.d. 100 mg, liquid tears, opiates four times Consultation Report [address] [place]. [address] NAME: BOB HINES : 33 STATUS : ADM IN [facility]#: [id number] AGE: 81 ADM/REG DATE : 01/29/17 MR#: [id number] REPORT SERV DATE: 02/01/17 DICTATED BY: SAJAN RILEY DATE: 02/01/17 REPORT STATUS : Draft TRANSCRIBED BY: JEAN MARIE DATE: 02/01/17 daily, Ecotrin 325 mg daily, Azactam 1 g IV q.8, Sinemet one tablet p.o. b.i.d., vitamin D 10,000 units daily, vancomycin via Pharmacy dosing and p.o. 125 mg q.6 hours, Pepcid 20 mg IV daily, Neurontin 100 mg p.o. t.i.d., gemfibrozil 600 mg p.o. b.i.d., isosorbide mononitrate 30 mg p.o. daily, Synthroid 100 mcg p.o. daily, loratadine 10 mg p.o. daily, Zoloft 50 mg p.o. at bedtime, Flomax 0.4 mg p.o. after breakfast, Coumadin via sliding scale, D5 normal saline infusing currently. Antiemetic, antipain, antinausea medications as well as electrolyte protocol are also available on the patient's active MAR. REVIEW OF SYSTEMS: Completed with the assistance of family at bedside as the patient is unable to participate. FAMILY HISTORY: Noncontributory and not reviewed during this consultation and dictation. SOCIAL HISTORY: No ETOH. No illicit drugs. No tobacco currently. PHYSICAL EXAMINATION: VITAL SIGNS: Blood pressure 115/56, temperature at 97.5, respiratory rate at 24, heart rate at 83 beats per minute. GENERAL: He is a chronically ill-appearing, male with nasogastric tube in his nares. Awake and alert during evaluation. HEENT: He is normocephalic and atraumatic. Normal ocular movements. No scleral icterus. No conjunctival pallor is appreciated. NECK: Supple without thyromegaly. No JVD and no mass. CHEST: Shows positive S1 and S2. No rubs or gallops. LUNGS: Diminished throughout with normal expansion and effort. No noted rhonchi or wheezes. GI: Shows a firm-tender abdomen to palpation generally in his umbilical area and left lower quadrant. : Examination is deferred. He does have a Caraballo to bedside drainage with minimal caren- colored urine to bedside drainage. EXTREMITIES: Show positive pulses. No clubbing, cyanosis, or edema. SKIN: Warm, dry, and intact visualized surfaces. No rash, lesions, or ecchymosis. NEUROLOGIC: He appears to be nonfocal, but at baseline is somewhat diminished with known Parkinson history. LABORATORY DATA: Pertinent laboratories and imaging to this evaluation are as follows: Blood culture 1 of 2 positive now Staph species, aggregate negative. Lactate level 2.8. Most recent KUB: Post NG tube placement, shows an in-place stable gaseous distention of the colon with no definitive small bowel dilation appreciated on exam. Portable chest x-ray: Peripheral and basilar atelectatic changes are improving compared to previous study. Most recent CBC: White blood cell count at 24.1, RBC is 4.05, hemoglobin 10.7, hematocrit 33.8, and platelets at 195. Comprehensive metabolic panel: Sodium 142, potassium 3.4, chloride 108, CO2 of 21, BUN 45, creatinine 1.64, reflected GFR 38 mL/minute, calcium 9.0, magnesium 2.2, total protein 6.1, albumin 2.62, and a CPK of 36, CK-MB 1.4. Troponin less than 0.02. Consultation Report [facility] [address] [place]. [address] NAME: BOB HINES : 33 STATUS : ADM IN PAT#: [id number] AGE: 81 ADM/REG DATE : 01/29/17 MR#: [id number] REPORT SERV DATE: 02/01/17 DICTATED BY: SAJAN RILEY DATE: 02/01/17 REPORT STATUS : Draft TRANSCRIBED BY: MODL DATE: 02/01/17 Brain natriuretic peptide 54.7. Most recent ABG: PH 7.35, pCO2 at 39, HCO3 at 20.9, O2 saturation 95.2. Vancomycin trough at 20.4, procalcitonin 5.67 as of 01/31. CT of the abdomen and pelvis without contrast: Show no acute pathology within his kidney and no indication of hydronephrosis with a nonobstructing stone noted on the right. IMPRESSION AND PLAN: This is an 81-year-old, male patient with a sepsis picture with elevated procalcitonin, elevated white count, noted positive blood cultures with recurrent admissions for C. diff colitis, question of cholecystitis, toxic megacolon. Being followed by GI Services with this being an unlikely scenario according to my interaction with Dr. Reynolds this morning. His creatinine is currently at 1.64 which appears to be showing anuric pattern with a decreased urinary output. He is currently positive greater than 5 L. We will attempt to elicit urinary output from this patient with dosing of Bumex in pulse dose form. We will also provide a one-time dose of Diuril 250 mg. Check urine sodium. This patient is certainly, with his multiple comorbidities and his advancing Parkison's, not a hemodialysis candidate. This patient's family has been advised of his current medical status and are in agreement with the plan and understanding the patient would not be considered viable for dialysis. In light of his continuing decline in function and his questionable long-term prognosis, they are agreeable to be evaluated by Palliative Care Services and will be seen by their service over the next 24 hours as his diagnostics become more clear. Place the patient on strict I's and O's. Follow him closely with serial laboratories and again, he is not a hemodialysis candidate and his long-term prognosis is likely poor. The family has been advised of this, this morning and understand current medical treatment plans and scenarios as defined by our by Renal Services as well as GI Services this morning. Further modification of treatment plan may be made based on clinical presentation of the patient's laboratory results, further consultation with Renal attending. We appreciate consultation and are glad to follow this patient with you. DICTATED BY: Jamison Muniz NP JR/JEAN MARIE Sajan Riley M.D. / [id number] CC: Ap Flaherty M.D.
--- NOTE | ~2017-01-29 | DS ---
Discharge Summary [facility] [address] [place]. [address] NAME: BOB HINES : 31 STATUS : DIS IN PAT#: [id number] AGE: 81 ADM/REG DATE : 01/29/17 MR#: [id number] REPORT SERV DATE: 02/04/17 DICTATED BY: JIMMIE AGUILAR DATE: 02/03/17 REPORT STATUS : Draft TRANSCRIBED BY: MODL DATE: 02/03/17 ADMISSION DATE: 01/29/2017 DISCHARGE DATE: 02/03/2017 DISCHARGE DIAGNOSES: 1. Recurrent severe Clostridium diff colitis. 2. Severe sepsis. 3. Acute kidney injury. 4. Frlxd-ib-vscfrjz hypoxic respiratory failure. 5. Advanced Parkinson's. 6. Voswf-zv-klsbgss anemia, status post two PRBCs. CONSULTS: 1. Dr. Sotelo of GI. 2. Dr. Reynolds of Surgery. 3. Dr. Longoria of Palliative Care. PROCEDURES: None. HOSPITAL COURSE: This is an 81-year-old gentleman, who was admitted to the hospital with severe sepsis due to recurrent severe C diff colitis. For details, please refer to excellent H and P dictated by Dr. Thomason. In summary, the patient was admitted with severe sepsis and was treated appropriately with broad-spectrum antibiotics. Unfortunately, the patient never really improved with the antibiotic therapy and continued to deteriorate. To make matters worse, the patient had dysphagia and he was unable to take p.o. vancomycin after he pulled out his NG tube. The patient could not tolerate re-inserting an NG tube and at that point in time, we had extensive discussion with the family and given his advanced Parkinson's with poor baseline quality of life and ongoing multiple medical issues, one being severe recurrent C diff colitis with poor prognosis, it was decided that the patient will likely benefit from conservative care. To come to such decision, GI and Surgery as well as Palliative Care was all involved, which we really appreciate their help. Family eventually decided to take the patient home with Hospice Care. The patient is thus being discharged home with hospice today. DISPOSITION: Home with hospice. FOLLOWUP: None. Total of 40 minutes spent in coordinating this patient's discharge today. TOO/JEAN MARIE Jimmie Aguilar MD Discharge Summary [address] [place] [address] NAME: BOB HINES : 31 STATUS : DIS IN PAT#: [id number] AGE: 81 ADM/REG DATE : 01/29/17 MR#: [id number] REPORT SERV DATE: 02/04/17 DICTATED BY: JIMMIE AGUILAR DATE: 02/03/17 REPORT STATUS : Draft TRANSCRIBED BY: JEAN MARIE DATE: 02/03/17 / [id number] CC: MD Reji Abreu M.D.
[2017-01-29 01:19] LABS: ALLENS TEST Pos; CARBOXYHEMOGLOBIN 1.4 % (0-3); HCO3 (ACTUAL BICARBONATE) 22.6 MEQ/L (23-27); HEMOBLOGIN CONTENT 9.2 G/DL (14-18); INSTRUMENT SERIAL # 8087; METHEMOGLOBIN 0.5 % (0-3); O2 CONTENT 12.3 VOL% (18-24); OPERATOR ID 17589; PCO2 (CO2 TENSION) 33 MMHG (35-45); PO2 (O2 TENSION) 83 MMHG (79-93); SAMPLE Arterial; pH 7.45 (7.37-7.43)
[2017-01-29 02:38] LABS: BASOPHILS ABSOLUTE 0.02 10/3/uL (0.0-0.16); EOSINOPHILS 0 %; EOSINOPHILS ABSOLUTE 0.01 10/3/uL (0.0-0.53); MEAN CORPUS HGB CONC 30.9 g/dL (32.0-36.0); MEAN CORPUSCULAR HEMOGLOB 26.1 pg (26.0-34.0); MEAN CORPUSCULAR VOLUME 84.5 fL (80-100); MEAN PLATELET VOLUME 11.2 fL (9.2-13.0); MONOCYTES 12.5 %; MONOCYTES ABSOLUTE 5.21 10/3/uL (0.21-1.20); PLATELET COUNT 295 10/3/uL (150-400); RBC DISTRIBUTION WIDTH 18.8 % (12.0-16.0)
[2017-01-29 02:40] LABS: ER CBC TAT 0 Hrs 07 Mins; HEMATOCRIT 17.5 % (40.0-51.0); HEMOGLOBIN 5.4 g/dL (13.6-17.8); RED CELL COUNT 2.07 10/6/uL (4.7-6.1); WHITE BLOOD CELLS 41.7 10/3/uL (4.5-10.5)
[2017-01-29 02:42] LABS: BASOPHILS 0 %; MANUAL DIFF NO %
[2017-01-29 02:45] LABS: INTERNATIONAL NORMAL RATI 1.9 UNITS (-); PARTIAL THROMBO TIME 35.5 SEC (22.5-37.2)
[2017-01-29 02:46] LABS: PROTIME (NOT ORD) 21.7 SEC (12.0-14.5)
[~2017-01-29 02:49] MED LIST changes: +ASAEC PO; +ASMANEX200 INH; +PEP20 PO; +REFRESH OPH; +VANCOMYCIN 250 MG/5 ML PO; +ZOFRAN4 PO
[2017-01-29 02:54] LABS: LACTATE 3.4 MMOL/L (0.3-2.4)
[2017-01-29 02:55] LABS: A/G RATIO 0.6 (0.7-1.9); ALBUMIN 2.7 G/DL (3.5-5.0); CALCIUM, SERUM 8.8 MG/DL (8.5-10.4); CHLORIDE, SERUM 105 MMOL/L (96-112); CO2 (CARBON DIOXIDE) 28 MMOL/L (24-34); CREATININE 1.34 MG/DL (0.70-1.30); GFR AFRICAN AMERICAN 56 ML/MIN (>=60); GFR NON AFRICAN AMERICAN 49 ML/MIN (>=60); GLOBULIN 4.2 G/DL (2.5-4.1); GLUCOSE, SERUM 87 MG/DL (60-99); POTASSIUM, SERUM 3.6 MMOL/L (3.5-5.3); SGOT(AST) 22 U/L (5-40); SGPT(ALT) 11 U/L (5-65); SODIUM, SERUM 144 MMOL/L (135-148); TOTAL BILIRUBIN 0.4 MG/DL (0-1.2); TOTAL PROTEIN 6.9 G/DL (6.0-8.5)
[2017-01-29 02:57] LABS: ALKALINE PHOSPHATASE 129 U/L (45-117); BUN (BLOOD UREA NITROGEN) 23 MG/DL (6-23)
[2017-01-29 03:05] LABS: ASCORBIC ACID (UR NOT ORDER) NEG (NEG); BILIRUBIN, URINE NEGATIVE (NEG); ER URINALYSIS TAT 0 Hrs 00 Mins; KETONE, URINE TRACE MG/DL (NEG); LEUKOCYTE ESTERASE(NOT OR SMALL (NEG); NITRITE (URINE) NEG (NEG); WBC (NOT ORDERED) (RFLEX) 15 (0-5)
[2017-01-29 03:06] LABS: INFLUENZA A SCREEN NEGATIVE (NEGATIVE); INFLUENZA B SCREEN NEGATIVE (NEGATIVE)
[2017-01-29 03:23] LABS: PROCALCITONIN 6.67 ng/mL (<0.5)
[2017-01-29 06:06] LABS: BAND NEUTROPHILS 14 %; ER DIFF TAT 3 Hrs 33 Mins; LYMPHOCYTES 2 %; LYMPHOCYTES ABSOLUTE (CALC) 0.83 10/3/uL (0.67-4.30); MONOCYTES 6 %; NEUTROPHILS ABSOLUTE (CALC) 38.36 10/3/uL (2.02-8.40); PLATELET ESTIMATE ADQ (ADEQUATE); SEGMENTED NEUTROPHIL (0) 78 %; TOTAL NUCLEATED CELLS 100
[2017-01-29 06:07] LABS: ANISOCYTOSIS 1+ (5-10/OIF) (0-5/OIF)
[2017-01-29 06:08] LABS: HYPOCHROMIA 1+ (3-10/OIF) (0-2/OIF); POIKILOCYTOSIS 1+ (5-10/OIF) (0-5/OIF); STOMATOCYTES 1+ (3-10/OIF) (0-2/OIF)
[2017-01-29 06:52] LABS: TROPONIN I 0.02 NG/ML (<0.05)
[2017-01-29 13:07] LABS: HEMOGLOBIN 10.9 g/dL (13.6-17.8); MEAN CORPUS HGB CONC 31.6 g/dL (32.0-36.0); MEAN CORPUSCULAR HEMOGLOB 26.6 pg (26.0-34.0); MEAN CORPUSCULAR VOLUME 84.1 fL (80-100); MEAN PLATELET VOLUME 11.3 fL (9.2-13.0); PLATELET COUNT 217 10/3/uL (150-400); RBC DISTRIBUTION WIDTH 17.8 % (12.0-16.0); RETICULOCYTE COUNT 1.3 % (0.5-2.5); RETICULOCYTE COUNT ABSOLUTE 54.1 10/3/uL (20.2-119.8); WHITE BLOOD CELLS 27.3 10/3/uL (4.5-10.5)
[2017-01-29 13:08] LABS: HEMATOCRIT 34.5 % (40.0-51.0); MANUAL DIFF YES %
[2017-01-29 13:39] LABS: A/G RATIO 0.6 (0.7-1.9); ALBUMIN 2.5 G/DL (3.5-5.0); ALKALINE PHOSPHATASE 108 U/L (45-117); BUN (BLOOD UREA NITROGEN) 26 MG/DL (6-23); CALCIUM, SERUM 8.8 MG/DL (8.5-10.4); CHLORIDE, SERUM 103 MMOL/L (96-112); CO2 (CARBON DIOXIDE) 28 MMOL/L (24-34); CREATININE 1.16 MG/DL (0.70-1.30); FERRITIN 30 NG/ML (26-388); GFR AFRICAN AMERICAN 67 ML/MIN (>=60); GFR NON AFRICAN AMERICAN 58 ML/MIN (>=60); GLOBULIN 4.2 G/DL (2.5-4.1); GLUCOSE, SERUM 92 MG/DL (60-99); IRON BINDING CAPACITY 359 MCG/DL (250-450); IRON, SERUM 15 MCG/DL (35-150); PHOSPHORUS, SERUM 2.6 MG/DL (2.5-4.5); POTASSIUM, SERUM 4.1 MMOL/L (3.5-5.3); SGOT(AST) 20 U/L (5-40); SGPT(ALT) 20 U/L (5-65); SODIUM, SERUM 142 MMOL/L (135-148); TOTAL BILIRUBIN 0.5 MG/DL (0-1.2); TOTAL PROTEIN 6.7 G/DL (6.0-8.5); TROPONIN I 0.02 NG/ML (<0.05)
[2017-01-29 13:51] LABS: BAND NEUTROPHILS 21 %; LYMPHOCYTES 6 %; LYMPHOCYTES ABSOLUTE (CALC) 1.64 10/3/uL (0.67-4.30); MONOCYTES 8 %; MONOCYTES ABSOLUTE (CALC) 2.18 10/3/uL (0.21-1.20); NEUTROPHILS ABSOLUTE (CALC) 23.48 10/3/uL (2.02-8.40); SEGMENTED NEUTROPHIL (0) 65 %; TOTAL NUCLEATED CELLS 100
[2017-01-29 13:52] LABS: ANISOCYTOSIS 1+ (5-10/OIF) (0-5/OIF); ELLIPTOCYTES 1+ (3-10/OIF) (0-2/OIF); PLATELET ESTIMATE ADQ (ADEQUATE)
[2017-01-29 20:20] LABS: HEMATOCRIT 34.1 % (40.0-51.0); HEMOGLOBIN 10.6 g/dL (13.6-17.8)
[2017-01-30 03:17] LABS: HEMATOCRIT 34.9 % (40.0-51.0); HEMOGLOBIN 11.1 g/dL (13.6-17.8); MEAN CORPUS HGB CONC 31.8 g/dL (32.0-36.0); MEAN CORPUSCULAR HEMOGLOB 26.9 pg (26.0-34.0); MEAN CORPUSCULAR VOLUME 84.5 fL (80-100); PLATELET COUNT 202 10/3/uL (150-400); RBC DISTRIBUTION WIDTH 18.2 % (12.0-16.0); RED CELL COUNT 4.13 10/6/uL (4.7-6.1); WHITE BLOOD CELLS 23.5 10/3/uL (4.5-10.5)
[2017-01-30 03:18] LABS: MANUAL DIFF YES %
[2017-01-30 03:24] LABS: INTERNATIONAL NORMAL RATI 3.1 UNITS (-); PROTIME (NOT ORD) 31.4 SEC (12.0-14.5)
[2017-01-30 03:37] LABS: A/G RATIO 0.7 (0.7-1.9); ALBUMIN 2.6 G/DL (3.5-5.0); ANISOCYTOSIS 1+ (5-10/OIF) (0-5/OIF); BAND NEUTROPHILS 24 %; BUN (BLOOD UREA NITROGEN) 27 MG/DL (6-23); CHLORIDE, SERUM 104 MMOL/L (96-112); CO2 (CARBON DIOXIDE) 26 MMOL/L (24-34); CREATININE 1.14 MG/DL (0.70-1.30); GFR AFRICAN AMERICAN 69 ML/MIN (>=60); GFR NON AFRICAN AMERICAN 59 ML/MIN (>=60); GIANT PLATELET FEW; GLUCOSE, SERUM 96 MG/DL (60-99); IMMATURE GRANS ABSOLUTE (CALC) 0.71 10/3/uL (0.0-0.11); LYMPHOCYTES 4 %; LYMPHOCYTES ABSOLUTE (CALC) 0.94 10/3/uL (0.67-4.30); METAMYELOCYTES 2 %; MONOCYTES 9 %; MONOCYTES ABSOLUTE (CALC) 2.12 10/3/uL (0.21-1.20); MYELOCYTES 1 %; NEUTROPHILS ABSOLUTE (CALC) 19.74 10/3/uL (2.02-8.40); PHOSPHORUS, SERUM 2.3 MG/DL (2.5-4.5); PLATELET ESTIMATE ADQ (ADEQUATE); POTASSIUM, SERUM 3.9 MMOL/L (3.5-5.3); SEGMENTED NEUTROPHIL (0) 60 %; SGOT(AST) 14 U/L (5-40); SODIUM, SERUM 140 MMOL/L (135-148); TOTAL BILIRUBIN 0.5 MG/DL (0-1.2); TOTAL NUCLEATED CELLS 100; TOTAL PROTEIN 6.6 G/DL (6.0-8.5)
[2017-01-30 03:38] LABS: RBC MORPHOLOGY ABN (NORMAL)
[2017-01-30 03:58] LABS: ALKALINE PHOSPHATASE 86 U/L (45-117)
[2017-01-30 04:00] LABS: SGPT(ALT) < 6 U/L (5-65)
[2017-01-30 04:18] LABS: PROCALCITONIN 6.03 ng/mL (<0.5)
[2017-01-30 08:59] LABS: HEMATOCRIT 36.5 % (40.0-51.0); HEMOGLOBIN 11.3 g/dL (13.6-17.8)
[2017-01-30 14:56] LABS: HEMATOCRIT 35.5 % (40.0-51.0); HEMOGLOBIN 11.1 g/dL (13.6-17.8)
[2017-01-30 20:51] LABS: HEMATOCRIT 36.8 % (40.0-51.0); HEMOGLOBIN 11.6 g/dL (13.6-17.8)
[2017-01-31 07:43] LABS: INTERNATIONAL NORMAL RATI 4.5 UNITS (-); PROTIME (NOT ORD) 42.7 SEC (12.0-14.5)
[2017-01-31 07:45] LABS: CHLORIDE, SERUM 106 MMOL/L (96-112); CO2 (CARBON DIOXIDE) 23 MMOL/L (24-34); CREATININE 1.38 MG/DL (0.70-1.30); GFR AFRICAN AMERICAN 54 ML/MIN (>=60); GFR NON AFRICAN AMERICAN 47 ML/MIN (>=60); HEMATOCRIT 33.5 % (40.0-51.0); HEMOGLOBIN 10.4 g/dL (13.6-17.8); MEAN CORPUSCULAR HEMOGLOB 25.9 pg (26.0-34.0); MEAN CORPUSCULAR VOLUME 83.5 fL (80-100); PLATELET COUNT 191 10/3/uL (150-400); POTASSIUM, SERUM 3.8 MMOL/L (3.5-5.3); RBC DISTRIBUTION WIDTH 18.6 % (12.0-16.0); RED CELL COUNT 4.01 10/6/uL (4.7-6.1); SODIUM, SERUM 140 MMOL/L (135-148); WHITE BLOOD CELLS 24.9 10/3/uL (4.5-10.5)
[2017-01-31 07:47] LABS: MANUAL DIFF YES %
[2017-01-31 07:52] LABS: BUN (BLOOD UREA NITROGEN) 38 MG/DL (6-23); GLUCOSE, SERUM 133 MG/DL (60-99)
[2017-01-31 08:05] LABS: ANISOCYTOSIS 1+ (5-10/OIF) (0-5/OIF); BAND NEUTROPHILS 27 %; BASOPHILS 1 %; BASOPHILS ABSOLUTE (CALC) 0.25 10/3/uL (0.0-0.16); ELLIPTOCYTES 1+ (3-10/OIF) (0-2/OIF); IMMATURE GRANS ABSOLUTE (CALC) 0.75 10/3/uL (0.0-0.11); LYMPHOCYTES 10 %; LYMPHOCYTES ABSOLUTE (CALC) 2.49 10/3/uL (0.67-4.30); METAMYELOCYTES 3 %; MONOCYTES 11 %; MONOCYTES ABSOLUTE (CALC) 2.74 10/3/uL (0.21-1.20); NEUTROPHILS ABSOLUTE (CALC) 18.68 10/3/uL (2.02-8.40); PLATELET ESTIMATE ADQ (ADEQUATE); SEGMENTED NEUTROPHIL (0) 48 %; TOTAL NUCLEATED CELLS 100
[2017-01-31 08:06] LABS: HYPOCHROMIA 1+ (3-10/OIF) (0-2/OIF); SCHISTOCYTES OCC (0-2/OIF)
[2017-01-31 08:26] LABS: PROCALCITONIN 5.67 ng/mL (<0.5)
[2017-02-01 03:18] LABS: INTERNATIONAL NORMAL RATI 2.1 UNITS (-)
[2017-02-01 03:19] LABS: HEMATOCRIT 33.8 % (40.0-51.0); HEMOGLOBIN 10.7 g/dL (13.6-17.8); MEAN CORPUS HGB CONC 31.7 g/dL (32.0-36.0); MEAN CORPUSCULAR HEMOGLOB 26.4 pg (26.0-34.0); MEAN CORPUSCULAR VOLUME 83.5 fL (80-100); PLATELET COUNT 195 10/3/uL (150-400); RBC DISTRIBUTION WIDTH 18.9 % (12.0-16.0); RED CELL COUNT 4.05 10/6/uL (4.7-6.1); WHITE BLOOD CELLS 24.9 10/3/uL (4.5-10.5)
[2017-02-01 03:21] LABS: ALLENS TEST Pos; BE (BASE EXCESS) -4.2 MEQ/L (0 +/- 2.5); CARBOXYHEMOGLOBIN 0.2 % (0-3); HCO3 (ACTUAL BICARBONATE) 20.9 MEQ/L (23-27); HEMOBLOGIN CONTENT 11.6 G/DL (14-18); INSTRUMENT SERIAL # 35151; METHEMOGLOBIN 0.6 % (0-3); O2 CONTENT 15.5 VOL% (18-24); OPERATOR ID 16503; PCO2 (CO2 TENSION) 39 MMHG (35-45); PO2 (O2 TENSION) 81 MMHG (79-93); SAMPLE Arterial; pH 7.35 (7.37-7.43)
[2017-02-01 03:24] LABS: MANUAL DIFF YES %; PROTIME (NOT ORD) 23.3 SEC (12.0-14.5)
[2017-02-01 03:29] LABS: A/G RATIO 0.7 (0.7-1.9); ALBUMIN 2.6 G/DL (3.5-5.0); ALKALINE PHOSPHATASE 92 U/L (45-117); CHLORIDE, SERUM 108 MMOL/L (96-112); CO2 (CARBON DIOXIDE) 21 MMOL/L (24-34); CPK 36 U/L (0-200); CREATININE 1.64 MG/DL (0.70-1.30); GFR AFRICAN AMERICAN 44 ML/MIN (>=60); GFR NON AFRICAN AMERICAN 38 ML/MIN (>=60); GLOBULIN 3.5 G/DL (2.5-4.1); POTASSIUM, SERUM 3.4 MMOL/L (3.5-5.3); SGOT(AST) 11 U/L (5-40); SODIUM, SERUM 142 MMOL/L (135-148); TOTAL BILIRUBIN 0.4 MG/DL (0-1.2); TOTAL PROTEIN 6.1 G/DL (6.0-8.5); TROPONIN I <0.02 NG/ML (<0.05)
[2017-02-01 03:40] LABS: BUN (BLOOD UREA NITROGEN) 45 MG/DL (6-23); CK-MB 1.4 NG/ML; GLUCOSE, SERUM 169 MG/DL (60-99); SGPT(ALT) < 6 U/L (5-65)
[2017-02-01 03:45] LABS: BAND NEUTROPHILS 5 %; LYMPHOCYTES 5 %; LYMPHOCYTES ABSOLUTE (CALC) 1.25 10/3/uL (0.67-4.30); MONOCYTES 9 %; MONOCYTES ABSOLUTE (CALC) 2.24 10/3/uL (0.21-1.20); NEUTROPHILS ABSOLUTE (CALC) 21.41 10/3/uL (2.02-8.40); SEGMENTED NEUTROPHIL (0) 81 %; TOTAL NUCLEATED CELLS 100
[2017-02-01 03:46] LABS: ANISOCYTOSIS 1+ (5-10/OIF) (0-5/OIF); PLATELET ESTIMATE ADQ (ADEQUATE); RBC MORPHOLOGY ABN (NORMAL)
[2017-02-02 05:24] LABS: HEMATOCRIT 34.4 % (40.0-51.0); HEMOGLOBIN 10.9 g/dL (13.6-17.8); MEAN CORPUS HGB CONC 31.7 g/dL (32.0-36.0); MEAN CORPUSCULAR HEMOGLOB 26.1 pg (26.0-34.0); MEAN CORPUSCULAR VOLUME 82.3 fL (80-100); PLATELET COUNT 220 10/3/uL (150-400); RBC DISTRIBUTION WIDTH 19.1 % (12.0-16.0); RED CELL COUNT 4.18 10/6/uL (4.7-6.1)
[2017-02-02 05:25] LABS: MANUAL DIFF YES %
[2017-02-02 05:37] LABS: CALCIUM, SERUM 9.6 MG/DL (8.5-10.4); CHLORIDE, SERUM 109 MMOL/L (96-112); CO2 (CARBON DIOXIDE) 24 MMOL/L (24-34); CREATININE 1.61 MG/DL (0.70-1.30); GFR AFRICAN AMERICAN 45 ML/MIN (>=60); GFR NON AFRICAN AMERICAN 39 ML/MIN (>=60); PHOSPHORUS, SERUM 2.5 MG/DL (2.5-4.5); POTASSIUM, SERUM 3.1 MMOL/L (3.5-5.3); SODIUM, SERUM 143 MMOL/L (135-148)
[2017-02-02 05:39] LABS: BUN (BLOOD UREA NITROGEN) 55 MG/DL (6-23); GLUCOSE, SERUM 125 MG/DL (60-99)
[2017-02-02 05:49] LABS: ANISOCYTOSIS 1+ (5-10/OIF) (0-5/OIF); BAND NEUTROPHILS 2 %; IMMATURE GRANS ABSOLUTE (CALC) 0.28 10/3/uL (0.0-0.11); LYMPHOCYTES 4 %; LYMPHOCYTES ABSOLUTE (CALC) 1.12 10/3/uL (0.67-4.30); METAMYELOCYTES 1 %; MONOCYTES 5 %; PLATELET ESTIMATE ADQ (ADEQUATE); SEGMENTED NEUTROPHIL (0) 88 %; TOTAL NUCLEATED CELLS 100
[2017-02-02 05:51] LABS: HYPOCHROMIA 1+ (3-10/OIF) (0-2/OIF)
[2017-02-02 07:11] LABS: PROCALCITONIN 3.71 ng/mL (<0.5)
[2017-02-03 06:36] LABS: ALBUMIN 2.9 G/DL (3.5-5.0); BUN (BLOOD UREA NITROGEN) 68 MG/DL (6-23); CALCIUM, SERUM 9.5 MG/DL (8.5-10.4); CHLORIDE, SERUM 112 MMOL/L (96-112); CO2 (CARBON DIOXIDE) 24 MMOL/L (24-34); CREATININE 2.07 MG/DL (0.70-1.30); GFR AFRICAN AMERICAN 33 ML/MIN (>=60); GFR NON AFRICAN AMERICAN 29 ML/MIN (>=60); GLUCOSE, SERUM 134 MG/DL (60-99); PHOSPHORUS, SERUM 3.5 MG/DL (2.5-4.5); POTASSIUM, SERUM 3.5 MMOL/L (3.5-5.3); SODIUM, SERUM 147 MMOL/L (135-148)
[2017-02-03 06:37] LABS: HEMATOCRIT 36.6 % (40.0-51.0); HEMOGLOBIN 11.5 g/dL (13.6-17.8); MEAN CORPUS HGB CONC 31.4 g/dL (32.0-36.0); MEAN CORPUSCULAR HEMOGLOB 26.2 pg (26.0-34.0); MEAN CORPUSCULAR VOLUME 83.4 fL (80-100); NUCLEATED RED BLOOD CELLS 0.2 /100WBC (0-0); PLATELET COUNT 251 10/3/uL (150-400); RBC DISTRIBUTION WIDTH 19.4 % (12.0-16.0); RED CELL COUNT 4.39 10/6/uL (4.7-6.1)
[2017-02-03 06:39] LABS: WHITE BLOOD CELLS 28.4 10/3/uL (4.5-10.5)
[2017-02-03 06:40] LABS: MANUAL DIFF YES %
[2017-02-03 07:32] LABS: ANISOCYTOSIS 1+ (5-10/OIF) (0-5/OIF); BAND NEUTROPHILS 2 %; ELLIPTOCYTES 1+ (3-10/OIF) (0-2/OIF); HYPOCHROMIA 1+ (3-10/OIF) (0-2/OIF); IMMATURE GRANS ABSOLUTE (CALC) 0.85 10/3/uL (0.0-0.11); LYMPHOCYTES 5 %; LYMPHOCYTES ABSOLUTE (CALC) 1.42 10/3/uL (0.67-4.30); METAMYELOCYTES 2 %; MONOCYTES 10 %; MONOCYTES ABSOLUTE (CALC) 2.84 10/3/uL (0.21-1.20); MYELOCYTES 1 %; NEUTROPHILS ABSOLUTE (CALC) 23.29 10/3/uL (2.02-8.40); PLATELET ESTIMATE ADQ (ADEQUATE); SEGMENTED NEUTROPHIL (0) 80 %; TOTAL NUCLEATED CELLS 100
[2017-02-03 07:33] LABS: POIKILOCYTOSIS 1+ (5-10/OIF) (0-5/OIF)
[2017-02-04 20:38] LABS: CK BB 0 % (0); CK MB 0 % (0-4); CK MM 100 % (96-100); CK-MACRO TYPE II 0 % (0); CK-MACRO TYPE1 0 % (0); CREATINE KINASE, TOTAL 34 U/L (20-200)
== END 2017-02-03 20:52 | disposition hospice, inpatient (51) | DRG 871 ==
LOC: ER 02:49 → ER/OF 06:12 → 6NO 09:46
PROVIDERS: Internal Medicine; Internal Medicine Nephrology; Nurse Practitioner Family; Specialist
PROC: 5A09357 Assistance with Respiratory Ventilation, Less than 24 Consecutive Hours, Continuous Positive Airway Pressure (ICD-10-PCS; principal; 2017-01-31)
DX: A41.9 Sepsis, unspecified organism (principal); J18.9 Pneumonia, unspecified organism; J96.21 Acute and chronic respiratory failure with hypoxia; N17.0 Acute kidney failure with tubular necrosis; A04.7 Enterocolitis due to Clostridium difficile; J96.11 Chronic respiratory failure with hypoxia; G92 Toxic encephalopathy; G20 Parkinson's disease; R65.20 Severe sepsis without septic shock; Z99.81 Dependence on supplemental oxygen; R13.10 Dysphagia, unspecified; Z51.5 Encounter for palliative care; D64.9 Anemia, unspecified; J44.9 Chronic obstructive pulmonary disease, unspecified; N20.0 Calculus of kidney; I25.10 Atherosclerotic heart disease of native coronary artery without angina pectoris; K21.9 Gastro-esophageal reflux disease without esophagitis; E03.9 Hypothyroidism, unspecified; N40.0 Benign prostatic hyperplasia without lower urinary tract symptoms; K57.30 Diverticulosis of large intestine without perforation or abscess without bleeding; Z95.5 Presence of coronary angioplasty implant and graft; Z96.652 Presence of left artificial knee joint; Z90.49 Acquired absence of other specified parts of digestive tract; Z86.718 Personal history of other venous thrombosis and embolism; Z86.010 Personal history of colon polyps; Z86.19 Personal history of other infectious and parasitic diseases; Z79.01 Long term (current) use of anticoagulants; Z88.2 Allergy status to sulfonamides; Z98.1 Arthrodesis status; Z91.041 Radiographic dye allergy status
CPT/HCPCS: 36415; 36430; 36600; 70450; 71010; 74000; 74176; 80048; 80053; 80069; 80202; 81001; 82272; 82533; 82550; 82552; 82553; 82728; 82805; 83540; 83550; 83605; 83735; 83880; 84100; 84145; 84300; 84439; 84443; 84484; 85014; 85018; 85025; 85045; 85610; 85730; 86850; 86900; 86901; 86920; 87040; 87077; 87086; 87150; 87186; 87328; 87329; 87449; 87493; 87493-59; 87804; 93005; 94640; 94660; 96361; 96365; 99291; A9270-GY; J0692; J1205; J2405; J2916; J2930; J3370; P9016; P9047